=== PATIENT | male | born 1960 | race Caucasian/White ===

== ENCOUNTER 2022-04-27 08:58 | Outpatient (CLI) | payer OTHER, SELFPAY ==
--- NOTE | 2022-04-27 | ECHO_ITS ---
Patient Info Name: Fernando Mays Age: 61 years : 1960 Gender: Male Ht: 67 in Wt: 277 lbs BSA: 2.50 m2 HR: 78 bpm BP: 134 / 81 mmHg Technical Quality: Poor Exam Date: 04/27/2022 9:16 AM Exam Location: [facility] Patient Status: Outpatient Admit Date: 04/27/2022 Staff Ordering Physician: Veto Edwards MD Rn Dermatology: Kalyn Fisher RCS Attending Provider: Veto Edwards MD Referring Physician: Jerry WILLAMS; Exam Type: CA echo doppler color flow Study Info Indications - dyspnea Complete two-dimensional, color flow and Doppler transthoracic echocardiogram is performed. Reason for Poor Study: patient body habitus Summary 1. Complete two-dimensional, color flow and Doppler transthoracic echocardiogram is performed. 2. Left ventricular chamber dimension is normal. 3. Left ventricular systolic function is normal, estimated at 60-65%. 4. The left ventricular diastolic function is grade I diastolic dysfunction. 5. E/e' 14 is mildly elevated. 6. There is mild aortic valve sclerosis. 7. The mitral valve has moderately calcified annulus. 8. There is trivial pericardial effusion. Left Ventricle E/e' 14 is mildly elevated. Left ventricular chamber dimension is normal. Left ventricular systolic function is normal, estimated at 60-65%. The left ventricular diastolic function is grade I diastolic dysfunction. Right Ventricle Right ventricular chamber dimension is normal. Right ventricular systolic function is normal. Left Atria Left atrial chamber dimension is normal. Right Atria Right atrial chamber dimension is normal. Aortic Valve The aortic valve is trileaflet. There is mild aortic valve sclerosis. There is no aortic valve stenosis. There is no aortic valve regurgitation. Pulmonic Valve There is no pulmonic regurgitation. Mitral Valve The mitral valve has moderately calcified annulus. There is no mitral valve stenosis. There is no mitral valve regurgitation. Tricuspid Valve There is no tricuspid valve regurgitation. Pericardium/Pleural There is trivial pericardial effusion. Inferior Vena Cava Normal inferior vena cava with >50% collapse upon inspiration consistent with normal right atrial pressure, 5 mmHg. Aorta The aortic root size at the sinus of Valsalva is normal. Left Ventricular Outflow Tract Name Value Normal LVOT 2D LVOT Diameter 2.1 cm LVOT Doppler LVOT Peak Gradient 5 mmHg LVOT Mean Gradient 3 mmHg LVOT VTI 25 cm LVOT VTI/AV VTI Ratio 0.8 LVOT Stroke Volume 87 ml LVOT CO 17.2 l/min LVOT CI 6.9 l/min/m2 Pulmonic Valve Name Value Normal PV Doppler PV Peak Gradient
--- NOTE | 2022-04-27 15:59 | WPDPFTINT ---
PFT Procedure Performed PFT Procedure Performed Plethysmography (Lung Vol) Diffusing Cap (DLCO) Flow Vol Loop Spirometry w/o Bronchodil PFT Interpretation This is a pulmonary function test with spirometry, plethysmography and diffusing capacity. The test was performed and results interpreted in accordance with the 2019 and 2005 ATS/ERS Task Force guidelines respectively using the Global Lung Function Initiative-2012 reference equations. Patient demonstrated good effort and cooperation. Reproducibility criteria were met. The quality of the spirometry maneuver was Grade B. Findings: Spirometry: The contour the inspiratory and expiratory flow tracing is normal. The FVC is 2.86 L, 71% predicted. The FEV1 is 2.16 L, 69% predicted. The FEV1: FVC ratio 75%. Plethysmography: The total lung capacity is 5.59 L, 88% predicted. The functional residual capacity is 3.46 L, 105% predicted. The residual volume is 2.48 L, 116% predicted. Diffusing capacity: The diffusing capacity unadjusted for hemoglobin and carboxyhemoglobin is 22.3, 84% predicted. The diffusing capacity adjusted for alveolar volume is 4.40, 102% predicted. Impression: The spirometry is normal without evidence of an obstructive abnormality. The lung volumes are normal without evidence of and restrictive abnormality. The FVC and FEV1 are mildly decreased without an obstructive or restrictive abnormality. This is an abnormal but nonspecific pattern. The diffusing capacity is normal. There are no prior studies for comparison
== END 2022-04-27 08:59 | disposition home or self-care (01) ==
PROVIDERS: Visit Provider Internal Medicine
DX: I25.10 Atherosclerotic heart disease of native coronary artery without angina pectoris (principal); R06.00 Dyspnea, unspecified
CPT/HCPCS: 93306; 94375; 94726; 94729

== ENCOUNTER 2022-07-12 15:05 | Emergency (ER) | payer OTHER, SELFPAY ==
--- NOTE | ~2022-07-12 | XR_ITS ---
XR tibia fibula LT 2V DATE: 07/12/2022 16:42 INDICATION: Swelling of mid to distal tibia and fibula. Cellulitis. TECHNIQUE: Portable AP and lateral views left lower leg COMPARISON: None FINDINGS: There is prominent soft tissue swelling of the lower leg. No fracture, dislocation, periosteal reaction or bone destruction is detected. IMPRESSION: Prominent soft tissue swelling Reviewed, dictated and finalized at location [facility].
[2022-07-12 15:21] VITALS: BP 97/86; PULSE 92; RESP 20; TEMP 36.5; O2SAT 96
[2022-07-12 15:36] LABS: Basophils Percent Auto 0.4 % (0.2-1.2); Eosinophils Absolute Auto 0.1 K/mm3 (0-0.3); Eosinophils Percent Auto 1.4 % (0-4.4); Hematocrit 45.3 % (42.0-52.0); Hemoglobin 15.2 g/dL (14.0-18.0); Immature Granulocyte Absolute 0.04 K/mm3 (0.00-0.031); Immature Granulocyte Percent A 0.4 % (0-0.5); Lymphocytes Absolute Auto 1.41 K/mm3 (0.9-3.2); Lymphocytes Percent Auto 15.5 % (18.3-44.2); Mean Corpuscular HGB Conc 33.6 g/dl (32-36); Mean Corpuscular Hemoglobin 31.1 pg (26-34); Mean Corpuscular Volume 92.6 fl (80-100); Monocytes Absolute Auto 0.9 K/mm3 (0.1-0.6); Monocytes Percent Auto 10.3 % (2.6-8.5); Neutrophils Absolute Auto 6.6 K/mm3 (1.3-6.7); Platelet Count Result 236 k/mm3 (150-375); Red Blood Count 4.89 M/mm3 (4.6-6.20); Red Cell Distribution Width 13.5 % (11.5-14.5); White Blood Count 9.1 K/mm3 (4.5-10.0)
[2022-07-12 15:47] LABS: Anion Gap 7 mmol/L (8-16); Blood Urea Nitrogen 13 mg/dL (9-20); Calcium 9.1 mg/dL (8.4-10.2); Carbon Dioxide 33 mmol/L (22-30); Chloride 99 mmol/L (98-107); Estimated CRCL calculation 101 ml/min; Estimated Glomerular Filt Rate > 60; Glucose 107 mg/dL (65-110); Potassium 3.8 mmol/L (3.4-5.0); Sodium 139 mmol/L (137-145)
[2022-07-12 16:16] VITALS: BP 133/74; PULSE 89; RESP 16; O2SAT 97
[2022-07-12] MEDS: AMPICILLIN SULB 3 GM/NS 100 ML 3 GM/100 ML VIAL IVPB (16:23)
--- NOTE | 2022-07-12 17:04 | ED.EXTPRO ---
HPI - Extremity Problem General Chief complaint: Extremity Problem,Nontraumatic <Brayden Danielson PA-C - Last Filed: 07/12/22 17:56> Stated complaint: leg infection <BRANDAN Salazar Last Filed: 07/12/22 17:56> Time Seen by Provider: 07/12/22 15:30 <Brayden Danielson PA-C - Last Filed: 07/12/22 17:56> Source: patient <BRANDAN Salazar Last Filed: 07/12/22 17:56> Mode of arrival: ambulatory <Brayden Danielson PA-C - Last Filed: 07/12/22 17:56> Limitations: no limitations <BRANDAN Salazar Last Filed: 07/12/22 17:56> History of Present Illness HPI Narrative: This is a 61-year-old male with PMH of diabetes who presents to the ED with with chief complaint of left lower extremity redness, swelling, pain, drainage x2 days. Patient states he has had problems with this leg for the past 2 years however he is starting to have more redness and drainage. He called his primary doctor who said go to the ER. Patient states he has some pain but has been able to walk. Denies fevers, chills, nausea, vomiting, headache, LOC, cough, chest pain, shortness of breath. <Brayden Danielson PA-C - Last Filed: 07/12/22 17:56> Related Data Allergies/Adverse reactions: Allergies Allergy/AdvReac Type Severity Reaction Status Date / Time No Known Allergies Allergy Mild Unverified 07/12/22 16:52 <Brayden Danielson PA-C - Last Filed: 07/12/22 17:56> Review of Systems Review of Systems: CONSTITUTIONAL: Denies fever, chills, or sweats. EYES: Denies visual changes, redness, or discharge. ENT: Denies rhinorrhea, congestion, sore throat, or otalgia. CARDIOVASCULAR: Denies chest pain, palpitations, or edema. RESPIRATORY: Denies cough or dyspnea. GASTROINTESTINAL: Denies abdominal pain, nausea, vomiting, or diarrhea. GENITOURINARY: Denies dysuria or hematuria. SKIN: Endorses erythema, drainage, swelling. Denies rash or itching. MUSCULOSKELETAL: Denies back pain, joint pain, or myalgia. NEUROLOGIC: Denies headache, numbness, dizziness, or weakness. PSYCHIATRIC: Denies anxiety or depression. <Brayden Danielson PA-C - Last Filed: 07/12/22 17:56> Exam Narrative: GENERAL: Well-appearing, well-nourished, and in no acute distress. HEAD: Normocephalic, atraumatic. EYES: PERRLA and EOMI. ENT: Nares clear, no rhinorrhea or epistaxis. Mucous membranes moist. Oropharynx without tonsillar hypertrophy exudate or other lesions. NECK: Supple. No adenopathy or masses. CHEST: No respiratory distress. Clear to auscultation. No wheezes rales or rhonchi HEART: Regular rate and rhythm. No murmur heard. Normal peripheral pulses. ABDOMEN: Soft, nontender, nondistended, normal active bowel sounds. EXTREMITIES: Normal range of motion. No edema. SKIN: Large area of erythema noted to the left lower extremity anteriorly. It is quite warm to touch. Mildly tender. No active drainage. Several healing wounds. Skin exam is otherwise benign. Warm, dry, no rash. NEURO: Alert and oriented x3. No focal deficits. PSYCH: Normal mood and affect. <Brayden Danielson PA-C - Last Filed: 07/12/22 17:56> Course MANAGER CALL/PA Physician Supervision For this patient encounter, I reviewed the MANAGER CALL or PA documentation, treatment plan, and medical decision making; and I had [id number] time with this patient. 58-year-old male with history of recurrent cellulitis presented to the ED for evaluation of a worsening left lower extremity cellulitis. Patient reports the last time he was on any antibiotics was approximately 2 months ago. Patient reports that the cellulitis did resolve at that time. Patient states he has had worsening redness of the left lower extremity over the last 2 days. Patient was treated with antibiotics and in the emergency department and educated on reasons to return the emergency department. Patient was also encouraged of close follow-up with his primary care physician for wound check. All question concerns were addressed and patient was request
[2022-07-12 18:02] VITALS: BP 149/83; PULSE 99; RESP 18; O2SAT 96
== END 2022-07-12 18:35 | disposition home or self-care (01) ==
PROVIDERS: Emergency Medicine; Emergency Provider Physician Assistant
DX: L03.116 Cellulitis of left lower limb (principal)
CPT/HCPCS: 36415; 73590; 80048; 85025; 86140; 96365; 99284; J0295

== ENCOUNTER 2022-08-02 10:00 | Outpatient (CLI) | payer OTHER, SELFPAY ==
--- NOTE | ~2022-08-02 | CT_ITS ---
CT Scan of the Chest without Contrast: Clinical Indication: Lung cancer screening, personal history of smoking and is Technique: Contiguous sections were acquired throughout the chest without intravenous contrast. Dose reduction technique was used on this scan by utilizing automated exposure control and iterative recon struction technique. The dose-length product (DLP) was 340.55 mGy-cm. Findings: There is no evidence of any significant mediastinal, hilar or axillary lymphadenopathy. Extensive cor onary artery calcifications are present. There is no evidence of pleural or pericardial effusion. The lungs are clear. No pulmonary nodules or infiltrates are noted. Images through the upper abdomen reveal cholelithiasis.. There is DISH of the thoracic spine. Impression: Lung RADS 1: Negative. 12 month follow-up screening CT advised. Reviewed, dictated and finalized at [facility]. Impression: Lung RADS 1: Negative. 12 month follow-up screening CT advised.
== END 2022-08-02 10:01 | disposition home or self-care (01) ==
PROVIDERS: PCP Internal Medicine; Visit Provider Internal Medicine
DX: Z12.2 Encounter for screening for malignant neoplasm of respiratory organs (principal); Z87.891 Personal history of nicotine dependence
CPT/HCPCS: 71271